=== PATIENT | male | born 1985 | race Caucasian/White ===

== ENCOUNTER 2021-03-26 12:31 | Emergency (ER) | payer OTHER ==
[~2021-03-26] VITALS: Ht 162.6 cm; Wt 82.1 kg
[2021-03-26 12:46] VITALS: BP 138/88
[2021-03-26] MEDS ORDERED: LIDO15SO PO (15:49)
[2021-03-26 16:20] VITALS: BP 138/88
--- NOTE | 2021-03-26 16:28 | NUR ---
Patient discharged with v/s stable. Written and verbal after care instructions given and explained. Patient alert, oriented and verbalized understanding of instructions. Ambulatory with steady gait. All questions addressed prior to discharge. ID band removed. Patient advised to follow up with PMD. Rx of LIDOCAINE HCL given. Patient educated on indication of medication including possible reaction and side effects. Opportunity to ask questions provided and answered.
== END 2021-03-26 16:28 | disposition home or self-care (01) ==
LOC: MED 12:31
DX: S27.818A Other injury of esophagus (thoracic part), initial encounter (principal); T18.9XXA Foreign body of alimentary tract, part unspecified, initial encounter; Z79.899 Other long term (current) drug therapy; X58.XXXA Exposure to other specified factors, initial encounter; Y93.89 Activity, other specified; Y92.89 Other specified places as the place of occurrence of the external cause; Y99.8 Other external cause status
CPT/HCPCS: 70360; 70490; 99284